=== PATIENT | male | born 1965 | race Caucasian/White ===

== ENCOUNTER 2018-06-23 23:15 | Emergency (ER) | payer OTHER ==
[2018-06-24] MEDS ORDERED: PROMETHAZINE HCL INJ 25 MG/1 ML VIAL IM ONE (00:07)
[2018-06-24 00:12] LABS: APPEARANCE,URINE CLEAR; BILIRUBIN,URINE NEGATIVE (NEGATIVE); COLOR,URINE YELLOW; GLUCOSE, URINE NEGATIVE (NEGATIVE); KETONES,URINE NEGATIVE (NEGATIVE); LEUKOCYTE ESTERASE,URINE NEGATIVE (NEGATIVE); NITRITE,URINE NEGATIVE (NEGATIVE); PROTEIN,URINE NEGATIVE (NEGATIVE); URINE SPECIFIC GRAVITY 1.004; UROBILINOGEN,URINE NEGATIVE mg/dL (<2.0)
[2018-06-24 00:58] LABS: ABSOLUTE LYMPHOCYTES (AUTO) 1.5 10^3/uL (0.5-4.7); ABSOLUTE MONOCYTES (AUTO) 0.7 10^3/uL (0.1-1.4); ABSOLUTE NEUT (AUTO) 3.4 10^3/uL (1.7-8.2); BASOPHILS % (AUTO) 0.3 % (0-2); EOSINOPHILS % (AUTO) 0.8 % (0-6); HEMATOCRIT 40.5 % (37.9-51.0); LYMPHOCYTES % (AUTO) 26.5 % (13-45); MEAN CORPUSCULAR HEMOGLOBIN 34.8 pg (27.0-33.4); MEAN CORPUSCULAR HGB CONC 34.5 g/dL (32.0-36.0); MEAN CORPUSCULAR VOLUME 101 fl (80-97); PLATELET COUNT 144 10^3/uL (150-450); RED BLOOD COUNT 4.02 10^6/uL (4.35-5.55); SEGMENTED NEUTROPHILS % (AUTO) 59.4 % (42-78); TOTAL CELLS COUNTED % (AUTO) 100 %; WHITE BLOOD COUNT 5.7 10^3/uL (4.0-10.5)
[2018-06-24 01:09] LABS: ACETAMINOPHEN < 10 ug/mL (10-30); ALANINE AMINOTRANSFERASE 37 U/L (21-72); ALBUMIN 3.7 g/dL (3.5-5.0); ALCOHOL 200 mg/dL (NONE DETECTED); ALKALINE PHOSPHATASE 60 U/L (38-126); ANION GAP 9 (5-19); ASPARTATE AMINO TRANSFERASE 68 U/L (17-59); BILIRUBIN,DIRECT 0.4 mg/dL (0.0-0.4); BILIRUBIN,TOTAL 0.6 mg/dL (0.2-1.3); BLOOD UREA NITROGEN 9 mg/dL (7-20); CALCIUM 8.1 mg/dL (8.4-10.2); CARBON DIOXIDE 25 mmol/L (22-30); CHLORIDE 109 mmol/L (98-107); GLUCOSE 92 mg/dL (75-110); POTASSIUM 3.8 mmol/L (3.6-5.0); SALICYLATE < 1.0 mg/dL (2.0-20.0); SODIUM 142.7 mmol/L (137-145); TOTAL PROTEIN 6.3 g/dL (6.3-8.2)
[2018-06-24 01:20] LABS: URINE AMPHETAMINES SCREEN NEGATIVE; URINE BARBITURATES SCREEN NEGATIVE; URINE BENZODIAZEPINES SCREEN NEGATIVE; URINE COCAINE SCREEN NEGATIVE; URINE MARIJUANA (THC) SCREEN UNCONFIRMED POSITIVE; URINE METHADONE SCREEN NEGATIVE; URINE PHENCYCLIDINE SCREEN NEGATIVE
--- NOTE | 2018-06-24 05:16 | ER Document Report ---
Addendum entered and electronically signed by FABIOLA YOUNG LCSWA 06/24/18 08: 24: Discharge - Discharge Clinical Impression: Homicidal ideations Alcohol intoxication Qualifiers: Complication of substance-induced condition: uncomplicated Qualified Code(s): F10.920 - Alcohol use, unspecified with intoxication, uncomplicated Condition: Stable Disposition: HOME, SELF-CARE Additional Instructions: You have been evaluated by both medical and behavioral health teams and have been deemed appropriate for discharge. You are highly encouraged to stop drinking alcohol. You are recommended to follow-up with your outpatient mental health provider the [facility] upon returning to [facility] for both mental health and substance abuse treatment. It is also recommended you take your medications as prescribed. ACUTE ALCOHOL INTOXICATION and ALCOHOL ABUSE: Your evaluation revealed very high levels of alcohol. You can from drinking a large amount of alcohol rapidly! Further, there's the risk of falls , traffic accidents, and fights. A high portion (about 50 percent) of the serious injuries seen in hospital emergency rooms are caused by alcohol. Alcohol overdosage is usually due to an underlying emotional or psychiatric problem. You may benefit from counselling. If "binge" drinking is an ongoing problem for you, or if you drink ANY AMOUNT of alcohol EVERY day, you most likely have a tendency to alcoholism. You should avoid alcohol totally. We can refer you for treatment. Persons with alcohol problems are often also prone to other addictions -- you should discuss any use of medications or drugs with the doctor. You should be watched at home for the next several hours by someone who has not been drinking. Get extra fluids for the next 24 hours. Call the doctor if there is repeated vomiting, increasing headache, decreasing level of alertness, or any other worsening. CHRONIC ALCOHOLISM and ALCOHOL ABUSE: Your evaluation reveals evidence of chronic alcoholism, an addiction to alcohol. The tendency to alcoholism may be inherited. Chronic use of alcohol weakens muscles, causes fatty deposits in the liver , damages the stomach, makes you more prone to infections, and can cause defects in unborn children. In the long run, brain atrophy and cirrhosis of the liver result. You are also at greater risk for certain types of cancer, such as cancer of the mouth, throat, stomach, and liver. Counselling services are available to help you. In-hospital treatment programs often help. Support groups such as Alcoholics Anonymous can be very useful in beating this addiction. Your physician can make a referral for you. As alcoholics often are prone to other addictions, you should discuss your use of any other medications with the doctor. FOLLOW-UP CARE: If you experience worsening or a significant change in your symptoms, notify the physician immediately or return to the Emergency Department at any time for re-evaluation. Referrals: [facility] [Outside] - Follow up as needed Addendum entered and electronically signed by KRYSTIAN HOLBROOK PA-C 06:37: Course - Re-evaluation Re-evalutation: Pt. is medically cleared in the ED, awaiting Psych consult. Pt. still sleeping, easily arousable. CAOx4. - Vital Signs Vital signs: Temp Pulse Resp BP Pulse Ox 98.1 F 80 20 135/75 H 98 06/24/18 06:22 06/24/18 06:22 06/24/18 06:22 06/24/18 06:22 06/24/18 06:22 - Laboratory Result Diagrams: 06/24/18 00:50 06/24/18 00:50 Laboratory results interpreted by me: 06/24/18 06/24/18 00:50 00:50 RBC 4.02 L MCV 101 H MCH 34.8 H Plt Count 144 L Chloride 109 H Calcium 8.1 L AST 68 H Salicylates < 1.0 L Acetaminophen < 10 L Original Note: ED Psych Disorder / Suicide <KRYSTIAN HOLBROOK - Last Filed: 06/24/18 06:36> <FABIOLA YOUNG - Last Filed: 06/24/18 08:20> <SAFIA PEGUERO - Last Filed: 06/24/18 09:30> - General Chief Complaint: Psych Problem Stated Complaint: ETOH Time Seen by Provider: 06/23/18 23:42 Notes: Patient is a 53-year-old male presenting to the emergency department via EMS due to EtOH intoxication. Upon questioning patient is yelling at staff and stating, "I want to cut his fucking throat!" When asked what the pt. is talking about he stated that he wanted to kill someone who called him a derogatory comment. Pt. stated he did not want to kill himself. Pt. also denies auditory or visual hallucinations. Pt. contiunes to state, "let me out of here so I can kill him." At times pt. is able to be talked down and denies CP, SOB, hitting his head. Then pt. would get very upset with staff. (JUNG HOLBROOKMICHELLEMINERVA) Past Medical History - General Cannot obtain history due to: Intoxicated, Uncooperative - Social History Smoking Status: Unknown if Ever Smoked Lives with: Other Family History: Other <KRYSTIAN HOLBROOK - Last Filed: 06/24/18 06:36> Review of Systems - Review of Systems Constitutional: No symptoms reported EENT: No symptoms reported Cardiovascular: See HPI Respiratory: See HPI Gastrointestinal: No symptoms reported Genitourinary: No symptoms reported Male Genitourinary: No symptoms reported Musculoskeletal: No symptoms reported Skin: No symptoms reported Hematologic/Lymphatic: No symptoms reported Neurological/Psychological: No symptoms reported <KRYSTIAN HOLBROOK - Last Filed: 06/24/18 06:36> Physical Exam <KRYSTIAN HOLBROOK - Last Filed: 06/24/18 06:36> <FABIOLA YOUNG - Last Filed: 06/24/18 08:20> <SAFIA PEGUERO - Last Filed: 06/24/18 09:30> - Vital signs Vitals: Temp Pulse Resp BP Pulse Ox 98.3 F 89 20 140/83 H 96 06/23/18 23:18 06/23/18 23:18 06/23/18 23:18 06/23/18 23:18 06/23/18 23:18 - Notes Notes: GENERAL: No acute distress, able to be talked down at times. HEAD: Normocephalic, atraumatic. EYES: Pupils equal, round, and reactive to light. Extraocular movements intact. ENT: Oral mucosa moist, tongue midline. NECK: Full range of motion. Supple. Trachea midline. LUNGS: Clear to auscultation bilaterally, no wheezes, rales, or rhonchi. No respiratory distress. HEART: Regular rate and rhythm. No murmur ABDOMEN: Soft, non-tender. Non-distended. Bowel sounds present in all 4 quadrants. EXTREMITIES: Moves all 4 extremities spontaneously. No edema. No cyanosis. BACK: no cervical, thoracic, lumbar midline tenderness. No saddle anesthesia, normal distal neurovascular exam. NEUROLOGICAL: Alert and oriented x3. Normal speech yelling at staff intermittently. SKIN: Warm, dry, normal turgor. No rashes or lesions noted. (KRYSTIAN HOLBROOK) Course - Laboratory Result Diagrams: 06/24/18 00:50 06/24/18 00:50 <KRYSTIAN HOLBROOK - Last Filed: 06/24/18 06:36> <FABIOLA YOUNG - Last Filed: 06/24/18 08:20> - Laboratory Result Diagrams: 06/24/18 00:50 06/24/18 00:50 <SAFIA PEGUERO - Last Filed: 06/24/18 09:30> - Re-evaluation Re-evalutation: Pt. witnessed trying to leave the ED yelling, "I'm gonna kill him." pt was able to be talked back into going into hospital room. Exam and HPI preformed and then Pt. calmed down a little. Denied CP, SOB or falling, hitting his head, neck or back. When Pt. was told he would have to stay in the ED for evaluation he got upset and again tried to leave, medications were then ordered. Pt. has been sleeping ever since. (KRYSTIAN HOLBROOK) - Vital Signs Vital signs: Temp Pulse Resp BP Pulse Ox 98.1 F 80 20 135/75 H 98 06/24/18 06:22 18 06:22 06/24/18 06:22 06/24/18 06:22 06/24/18 06:22 - Laboratory Laboratory results interpreted by me: 06/24/18 06/24/18 00:50 00:50 RBC 4.02 L MCV 101 H MCH 34.8 H Plt Count 144 L Chloride 109 H Calcium 8.1 L AST 68 H Salicylates < 1.0 L Acetaminophen < 10 L Discharge <KRYSTIAN HOLBROOK - Last Filed: 06/24/18 06:36> <FABIOLA YOUNG - Last Filed: 06/24/18 08:20> <SAFIA PEGUERO - Last Filed: 06/24/18 09:30> - Discharge Clinical Impression: Homicidal ideations Alcohol intoxication Qualifiers: Complication of substance-induced condition: uncomplicated Qualified Code(s): F10.920 - Alcohol use, unspecified with intoxication, uncomplicated Condition: Stable Disposition: HOME, SELF-CARE Additional Instructions: You have been evaluated by both medical and behavioral health teams and have been deemed appropriate for discharge. You are highly encouraged to stop drinking alcohol. You are recommended to follow-up with your outpatient mental health provider the [facility] upon returning to [facility] for both mental health and substance abuse treatment. It is also recommended you take your medications as prescribed. ACUTE ALCOHOL INTOXICATION and ALCOHOL ABUSE: Your evaluation revealed very high levels of alcohol. You can from drinking a large amount of alcohol rapidly! Further, there's the risk of falls , traffic accidents, and fights. A high portion (about 50 percent) of the serious injuries seen in hospital emergency rooms are caused by alcohol. Alcohol overdosage is usually due to an underlying emotional or psychiatric problem. You may benefit from counselling. If "binge" drinking is an ongoing problem for you, or if you drink ANY AMOUNT of alcohol EVERY day, you most likely have a tendency to alcoholism. You should avoid alcohol totally. We can refer you for treatment. Persons with alcohol problems are often also prone to other addictions -- you should discuss any use of medications or drugs with the doctor. You should be watched at home for the next several hours by someone who has not been drinking. Get extra fluids for the next 24 hours. Call the doctor if there is repeated vomiting, increasing headache, decreasing level of alertness, or any other worsening. CHRONIC ALCOHOLISM and ALCOHOL ABUSE: Your evaluation reveals evidence of chronic alcoholism, an addiction to alcohol. The tendency to alcoholism may be inherited. Chronic use of alcohol weakens muscles, causes fatty deposits in the liver , damages the stomach, makes you more prone to infections, and can cause defects in unborn children. In the long run, brain atrophy and cirrhosis of the liver result. You are also at greater risk for certain types of cancer, such as cancer of the mouth, throat, stomach, and liver. Counselling services are available to help you. In-hospital treatment programs often help. Support groups such as Alcoholics Anonymous can be very useful in beating this addiction. Your physician can make a referral for you. As alcoholics often are prone to other addictions, you should discuss your use of any other medications with the doctor. FOLLOW-UP CARE: If you experience worsening or a significant change in your symptoms, notify the physician immediately or return to the Emergency Department at any time for re-evaluation. Referrals: [facility] [Outside] - Follow up as needed
[2018-06-24 06:23] VITALS: BP 135/75
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
--- NOTE | 2018-06-24 13:44 | EKG REPORT ---
SEVERITY:- OTHERWISE NORMAL ECG - SINUS RHYTHM BORDERLINE LEFT AXIS DEVIATION : Confirmed by: Nicole Akbar MD 24-Jun-2018 13:43:47
== END 2018-06-24 10:09 | disposition home or self-care (01) ==
LOC: ER 23:15
DX: R45.850 Homicidal ideations (principal); F10.920 Alcohol use, unspecified with intoxication, uncomplicated
CPT/HCPCS: 93005; 99285; 96372; 36415; 80307 ×4; 85025; 80053; 81001; 93010; J2550

== ENCOUNTER 2018-06-27 19:19 | Emergency (ER) | payer OTHER ==
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
[2018-06-27 21:02] LABS: ABSOLUTE EOSINOPHILS # (AUTO) 0.2 10^3/uL (0.0-0.6); ABSOLUTE LYMPHOCYTES (AUTO) 2.1 10^3/uL (0.5-4.7); ABSOLUTE MONOCYTES (AUTO) 0.8 10^3/uL (0.1-1.4); ABSOLUTE NEUT (AUTO) 2.7 10^3/uL (1.7-8.2); BASOPHILS % (AUTO) 0.6 % (0-2); EOSINOPHILS % (AUTO) 2.6 % (0-6); HEMATOCRIT 41.1 % (37.9-51.0); HEMOGLOBIN 14.6 g/dL (13.5-17.0); LYMPHOCYTES % (AUTO) 35.9 % (13-45); MEAN CORPUSCULAR HEMOGLOBIN 35.9 pg (27.0-33.4); MEAN CORPUSCULAR HGB CONC 35.6 g/dL (32.0-36.0); MEAN CORPUSCULAR VOLUME 101 fl (80-97); MONOCYTES % (AUTO) 13.7 % (3-13); PLATELET COUNT 143 10^3/uL (150-450); RED BLOOD COUNT 4.08 10^6/uL (4.35-5.55); SEGMENTED NEUTROPHILS % (AUTO) 47.2 % (42-78); TOTAL CELLS COUNTED % (AUTO) 100 %; WHITE BLOOD COUNT 5.7 10^3/uL (4.0-10.5)
[2018-06-27] MEDS ORDERED: TRAZODONE HCL 50 MG TABLET PO ONE (21:06)
[2018-06-27 21:12] LABS: APPEARANCE,URINE CLEAR; BILIRUBIN,URINE NEGATIVE (NEGATIVE); COLOR,URINE STRAW; GLUCOSE, URINE NEGATIVE (NEGATIVE); KETONES,URINE NEGATIVE (NEGATIVE); LEUKOCYTE ESTERASE,URINE NEGATIVE (NEGATIVE); NITRITE,URINE NEGATIVE (NEGATIVE); PROTEIN,URINE NEGATIVE (NEGATIVE); URINE SPECIFIC GRAVITY 1.002
[2018-06-27 21:24] LABS: ALANINE AMINOTRANSFERASE 36 U/L (21-72); ALBUMIN 3.7 g/dL (3.5-5.0); ALCOHOL 173 mg/dL (NONE DETECTED); ALKALINE PHOSPHATASE 64 U/L (38-126); ANION GAP 7 (5-19); ASPARTATE AMINO TRANSFERASE 52 U/L (17-59); BILIRUBIN,DIRECT 0.5 mg/dL (0.0-0.4); BILIRUBIN,TOTAL 0.6 mg/dL (0.2-1.3); BLOOD UREA NITROGEN 6 mg/dL (7-20); CALCIUM 8.8 mg/dL (8.4-10.2); CARBON DIOXIDE 25 mmol/L (22-30); CHLORIDE 110 mmol/L (98-107); GLUCOSE 88 mg/dL (75-110); POTASSIUM 3.7 mmol/L (3.6-5.0); SODIUM 141.8 mmol/L (137-145); TOTAL PROTEIN 6.3 g/dL (6.3-8.2); URINE AMPHETAMINES SCREEN NEGATIVE; URINE BARBITURATES SCREEN NEGATIVE; URINE BENZODIAZEPINES SCREEN NEGATIVE; URINE COCAINE SCREEN NEGATIVE; URINE MARIJUANA (THC) SCREEN NEGATIVE; URINE METHADONE SCREEN NEGATIVE; URINE PHENCYCLIDINE SCREEN NEGATIVE
[2018-06-27 21:32] LABS: ACETAMINOPHEN < 10 ug/mL (10-30); SALICYLATE < 1.0 mg/dL (2.0-20.0)
--- NOTE | 2018-06-28 08:43 | EKG REPORT ---
SEVERITY:- ABNORMAL ECG - SINUS RHYTHM CONSIDER ANTEROSEPTAL INFARCT : Confirmed by: Roselyn Baltazar 28-Jun-2018 08:43:01
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
[2018-06-28] MEDS ORDERED: ACETAMINOPHEN 325 MG TABLET PO ONE (15:32)
[2018-06-28] MEDS ORDERED: ACETAMINOPHEN WITH CODEINE #3 TABLET PO ONE (15:32)
--- NOTE | 2018-06-28 15:40 | ER Document Report ---
Doctor's Note Notes: 06/28/18 15:34 Rounds: Chart reviewed and patient interviewed. Patient being evaluated for alcohol abuse and aggressive behavior, including homicidal ideation. Vital signs are all essentially normal. Lab studies were abnormal alcohol of 173, no other significant abnormalities. Patient appears to be medically stable for transfer or discharge. Complains of chronic back pain for which he usually takes Tylenol 3 Aidan Mosley MD
[2018-06-28 16:55] VITALS: BP 144/86
== END 2018-06-28 16:56 | disposition home or self-care (01) ==
LOC: ER 19:19
DX: F10.120 Alcohol abuse with intoxication, uncomplicated (principal); Y90.6 Blood alcohol level of 120-199 mg/100 ml; R45.850 Homicidal ideations; F17.200 Nicotine dependence, unspecified, uncomplicated
CPT/HCPCS: 36415; 80053; 80307; 81001; 85025; 93005; 93010; 99285

== ENCOUNTER 2018-07-16 05:11 | Emergency (ER) | payer OTHER ==
--- NOTE | 2018-07-16 06:25 | ER Document Report ---
ED Psych Disorder / Suicide <FABIOLA YOUNG - Last Filed: 07/16/18 09:43> - General Mode of Arrival: Ambulatory Information source: Patient TRAVEL OUTSIDE OF THE [place] IN LAST 30 DAYS: No - HPI Patient complains to provider of: Suicidal ideation, Suicidal plan Onset: Last week Onset was: Gradual Quality of pain: No pain Severity: None Pain Level: Denies Suicide Risk Factors: Hallucinations Suicide Attempt Method: Motor Vehicle Normal mood: No Associated symptoms: Agitated Similar symptoms previously: No Recently seen / treated by doctor: No <NILSA MORALES - Last Filed: 07/16/18 11:10> - General Chief Complaint: Psych Problem Stated Complaint: PSYCH Time Seen by Provider: 07/16/18 06:13 Notes: 53-year-old male presents emergency department with suicidal ideations. Patient states that he is from [facility]. He has a history of anxiety, depression, and PTSD. He has been out of his psychiatric medications for the last 3 weeks because he's been unable to get a bus back to [place] to see his physician. Patient states that he has been thinking about jumping in front of trucks to kill himself. Patient denies any homicidal ideations. Patient states that he has been hearing his mother talk to him recently. He denies any chest pain, shortness of breath, abdominal pain. (NILSA MORALES) Past Medical History - Social History Smoking Status: Current Every Day Smoker Frequency of alcohol use: Social Drug Abuse: Marijuana, Other Family History: Other Patient has suicidal ideation: Yes Patient has homicidal ideation: Yes Renal/ Medical History: Denies: Hx Peritoneal Dialysis <NILSA MORALES - Last Filed: 07/16/18 11:10> Review of Systems - Review of Systems Constitutional: No symptoms reported EENT: No symptoms reported Cardiovascular: No symptoms reported Respiratory: No symptoms reported Gastrointestinal: No symptoms reported Genitourinary: No symptoms reported Musculoskeletal: No symptoms reported Skin: No symptoms reported Neurological/Psychological: Depression, Anxiety, Hallucinations, Suicidal ideation -: Yes All other systems reviewed and negative <NILSA MORALES - Last Filed: 07/16/18 11:10> Physical Exam <FABIOLA YOUNG - Last Filed: 07/16/18 09:43> - General General appearance: Other <NILSA MORALES - Last Filed: 07/16/18 11:10> - Vital signs Vitals: Temp Pulse BP Pulse Ox 98.4 F 87 138/88 H 98 07/16/18 05:26 18 05:26 07/16/18 05:26 07/16/18 05:26 - General Notes: PHYSICAL EXAMINATION: GENERAL: Agitated and in no acute distress. HEAD: Atraumatic, normocephalic. EYES: Pupils equal round and reactive to light, extraocular movements intact, sclera anicteric, conjunctiva are normal. ENT: Nares patent, oropharynx clear without exudates. Moist mucous membranes. NECK: Normal range of motion, supple without lymphadenopathy LUNGS: Breath sounds clear to auscultation bilaterally and equal. No wheezes rales or rhonchi. HEART: Regular rate and rhythm without murmurs ABDOMEN: Soft, nontender, nondistended abdomen. No guarding, no rebound. No masses appreciated. Musculoskeletal: Normal range of motion, no pitting or edema. No cyanosis. NEUROLOGICAL: Cranial nerves grossly intact. Normal speech, normal gait. Normal sensory, motor exams PSYCH: Agitated. Suicidal ideations. SKIN: Warm, Dry, normal turgor, no rashes or lesions noted. (NILSA MORALES ) Course - Laboratory Result Diagrams: 07/16/18 06:25 07/16/18 06:25 <FABIOLA YOUNG - Last Filed: 07/16/18 09:43> - Laboratory Result Diagrams: 07/16/18 06:25 07/16/18 06:25 <NILSA MORALES - Last Filed: 07/16/18 11:10> - Re-evaluation Re-evalutation: 07/16/18 06:49 EKG: Ventricular rate 76, WA interval 140, QRS duration 78, QTc 428, sinus rhythm, EKG similar to that done on 06/27/18. 07/16/18 11:09 Labs were obtained. No acute process identified. Patient was medically cleared. Patient was seen by behavioral health. They feel that the patient may be discharged home. Patient has a plan in place. Patient instructed to follow-up with his primary care physician this week, to continue taking medications as directed, and to return to emergency department for worsening symptoms. Patient is agreeable with plan of care. (NILSA MORALES) - Vital Signs Vital signs: Temp Pulse Resp BP Pulse Ox 98.4 F 87 138/88 H 98 07/16/18 05:26 07/16/18 05:26 07/16/18 05:26 07/16/18 05:26 - Laboratory Laboratory results interpreted by me: 07/16/18 07/16/18 07/16/18 06:25 06:25 06:40 RBC 3.98 L MCV 101 H MCH 35.6 H Plt Count 148 L Monocytes % 16.3 H Urine Urobilinogen 4.0 H Salicylates < 1.0 L Acetaminophen < 10 L Discharge <FABIOLA YOUNG - Last Filed: 07/16/18 09:43> <NILSA MORALES - Last Filed: 07/16/18 11:10> - Discharge Clinical Impression: Alcohol abuse, PTSD (post-traumatic stress disorder) Condition: Stable Disposition: HOME, SELF-CARE Additional Instructions: You have been evaluated by both medical and behavioral health teams and been deemed appropriate for discharge. You are highly encouraged to follow through with your plan of returning home to [place] to continue your outpatient mental health and substance abuse treatment with the [place]. CHRONIC ALCOHOLISM and ALCOHOL ABUSE: Your evaluation reveals evidence of chronic alcoholism, an addiction to alcohol. The tendency to alcoholism may be inherited. Chronic use of alcohol weakens muscles, causes fatty deposits in the liver , damages the stomach, makes you more prone to infections, and can cause defects in unborn children. In the long run, brain atrophy and cirrhosis of the liver result. You are also at greater risk for certain types of cancer, such as cancer of the mouth, throat, stomach, and liver. Counselling services are available to help you. In-hospital treatment programs often help. Support groups such as Alcoholics Anonymous can be very useful in beating this addiction. Your physician can make a referral for you. As alcoholics often are prone to other addictions, you should discuss your use of any other medications with the doctor. DEPRESSION: Your evaluation reveals that you have mental depression. While symptoms may be vague, they often include disturbance of sleep, fatigue, loss of appetite , and general loss of interest in life. While depression may be a side effect of drugs, or a reaction to a major change in your life, many cases have no known cause. If depression is acute, and related to a major loss in your life, you can expect it to clear completely with time. If you have been depressed a long time , are prone to repeated bouts of depression or low mood, or have been thinking of suicide, get help. Depression can be treated with anti-depressant medication and counselling. Long-term depression will often take a few weeks to clear, even with appropriate medication. Follow-up care is important. SUICIDAL IDEATION: Suicidal ideation is a common medical term for thoughts about suicide, which may be as detailed as a formulated plan, without the suicidal act itself. Although most people who undergo suicidal ideation do not commit suicide, some go on to make suicide attempts. The range of suicidal ideation varies greatly from fleeting to detailed planning, role playing, and unsuccessful attempts. While thoughts about suicide are common, most people do not carry out serious actions to commit suicide. Based upon your evaluation and discussion with you, we do not believe you are currently at risk to act upon your thoughts of suicide. You have agreed to return to the Emergency Department, at any time , if you feel inclined to act upon your suicidal thoughts. FOLLOW-UP CARE: If you experience worsening or a significant change in your symptoms, notify the physician immediately or return to the Emergency Department at any time for re-evaluation. Referrals: MARTÍN RODAS MD [ACTIVE STAFF] - Follow up as needed
[2018-07-16 06:35] LABS: ABSOLUTE BASOPHILS # (AUTO) 0.1 10^3/uL (0.0-0.2); ABSOLUTE EOSINOPHILS # (AUTO) 0.1 10^3/uL (0.0-0.6); ABSOLUTE LYMPHOCYTES (AUTO) 1.8 10^3/uL (0.5-4.7); ABSOLUTE MONOCYTES (AUTO) 1.3 10^3/uL (0.1-1.4); ABSOLUTE NEUT (AUTO) 4.9 10^3/uL (1.7-8.2); BASOPHILS % (AUTO) 0.8 % (0-2); HEMOGLOBIN 14.2 g/dL (13.5-17.0); MEAN CORPUSCULAR HEMOGLOBIN 35.6 pg (27.0-33.4); MEAN CORPUSCULAR HGB CONC 35.4 g/dL (32.0-36.0); MEAN CORPUSCULAR VOLUME 101 fl (80-97); MONOCYTES % (AUTO) 16.3 % (3-13); PLATELET COUNT 148 10^3/uL (150-450); RED BLOOD COUNT 3.98 10^6/uL (4.35-5.55); RED CELL DISTRIBUTION WIDTH 13.2 % (11.5-14.0); SEGMENTED NEUTROPHILS % (AUTO) 59.9 % (42-78); TOTAL CELLS COUNTED % (AUTO) 100 %; WHITE BLOOD COUNT 8.2 10^3/uL (4.0-10.5)
[2018-07-16 06:50] LABS: ALANINE AMINOTRANSFERASE 23 U/L (21-72); ALBUMIN 3.6 g/dL (3.5-5.0); ALCOHOL 40 mg/dL (NONE DETECTED); ALKALINE PHOSPHATASE 71 U/L (38-126); ANION GAP 12 (5-19); ASPARTATE AMINO TRANSFERASE 20 U/L (17-59); BILIRUBIN,DIRECT 0.1 mg/dL (0.0-0.4); BILIRUBIN,TOTAL 0.3 mg/dL (0.2-1.3); BLOOD UREA NITROGEN 8 mg/dL (7-20); CARBON DIOXIDE 24 mmol/L (22-30); CHLORIDE 106 mmol/L (98-107); GLUCOSE 93 mg/dL (75-110); POTASSIUM 3.7 mmol/L (3.6-5.0); SODIUM 142.2 mmol/L (137-145); TOTAL PROTEIN 6.4 g/dL (6.3-8.2)
[2018-07-16 06:51] LABS: ACETAMINOPHEN < 10 ug/mL (10-30); SALICYLATE < 1.0 mg/dL (2.0-20.0)
[2018-07-16 07:11] LABS: APPEARANCE,URINE CLEAR; BILIRUBIN,URINE NEGATIVE (NEGATIVE); COLOR,URINE YELLOW; GLUCOSE, URINE NEGATIVE (NEGATIVE); KETONES,URINE NEGATIVE (NEGATIVE); LEUKOCYTE ESTERASE,URINE NEGATIVE (NEGATIVE); NITRITE,URINE NEGATIVE (NEGATIVE); PROTEIN,URINE NEGATIVE (NEGATIVE); URINE SPECIFIC GRAVITY 1.009
[2018-07-16 07:25] LABS: URINE AMPHETAMINES SCREEN NEGATIVE; URINE BARBITURATES SCREEN NEGATIVE; URINE BENZODIAZEPINES SCREEN NEGATIVE; URINE COCAINE SCREEN NEGATIVE; URINE MARIJUANA (THC) SCREEN NEGATIVE; URINE METHADONE SCREEN NEGATIVE; URINE PHENCYCLIDINE SCREEN NEGATIVE
--- NOTE | 2018-07-16 09:21 | EKG REPORT ---
SEVERITY:- NORMAL ECG - SINUS RHYTHM : Confirmed by: Nicole Akbar MD 16-Jul-2018 09:19:41
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
[2018-07-16 11:16] VITALS: BP 147/92
== END 2018-07-16 11:17 | disposition home or self-care (01) ==
LOC: ER 05:11
DX: F43.10 Post-traumatic stress disorder, unspecified (principal); F32.9 Major depressive disorder, single episode, unspecified; F41.9 Anxiety disorder, unspecified; F10.10 Alcohol abuse, uncomplicated; R45.851 Suicidal ideations; Z91.14 Patient's other noncompliance with medication regimen; R44.0 Auditory hallucinations; F17.200 Nicotine dependence, unspecified, uncomplicated; F12.10 Cannabis abuse, uncomplicated
CPT/HCPCS: 36415; 80053; 80307; 81001; 85025; 93005; 93010; 99285